=== PATIENT | female | born 1975 | race Caucasian/White ===

== ENCOUNTER 2021-05-27 01:58 | Emergency (ER) | payer MEDICAID, OTHER ==
[~2021-05-27] VITALS: Ht 167.6 cm; Wt 64.5 kg
[~2021-05-27 01:58] MED LIST: ONDA8TAB9 PO; PHEN-786 PO
[2021-05-27 02:41] LABS: BASOPHILS # (AUTO) 0.1 X10'3 (0-0.2); BASOPHILS % (AUTO) 1.3 % (0-1); EOSINOPHILS % (AUTO) 0 % (0-6); HEMATOCRIT 46.6 % (35.0-45.0); HEMOGLOBIN 15.8 g/dl (12.0-16.0); LYMPHOCYTES # (AUTO) 2.2 X10'3 (1.1-4.8); LYMPHOCYTES % (AUTO) 35.1 % (21-51); MEAN CORPUSCULAR HEMOGLOBIN 30.3 PG (27.0-31.0); MEAN CORPUSCULAR HGB CONC 33.9 g/dL (33.0-36.5); MEAN CORPUSCULAR VOLUME 89.6 FL (78-98); MEAN PLATELET VOLUME 10.1 FL (7.4-10.4); MONOCYTES # (AUTO) 0.5 X10'3 (0-0.9); MONOCYTES % (AUTO) 8.5 % (2-12); NEUTROPHILS # (AUTO) 3.5 X10'3 (1.8-7.7); NEUTROPHILS % (AUTO) 55.1 % (42-75); PLATELET COUNT 201 X10'3 (140-440); WHITE BLOOD COUNT 6.3 X10'3 (4.5-11.0)
[2021-05-27 02:43] LABS: CLARITY,URINE SLIGHTLY CLOUDY (Clear); COLOR,URINE YELLOW (Yellow); GLUCOSE, URINE NEGATIVE (Neg); KETONES,URINE NEGATIVE (Neg); LEUKOCYTE ESTERASE ,URINE MODERATE (Neg); NITRITES, URINE NEGATIVE (Neg); OCCULT BLOOD,URINE NEGATIVE (Neg); PH,URINE 6.5 (4.8-8.0); PROTEIN,URINE TRACE mg/dl (Neg); URINE HCG NEGATIVE (NEG); UROBILINOGEN,URINE 0.2 E.U/dL (0.2-1.0)
[2021-05-27 02:46] LABS: UA COLLECTION TYPE CLN CATCH MIDSTREAM
[2021-05-27 02:51] LABS: BACTERIA,URINE 1+ /HPF (Neg); MUCUS STRANDS FEW /LPF (Neg); RBC,URINE 0-2 /HPF (0-2); SQUAMOUS EPITHELIAL CELL,UR MODERATE /LPF (FEW); WBC,URINE 20-30 /HPF (0-4)
[2021-05-27 03:00] LABS: ALANINE AMINOTRANSFERASE 51 U/L (12-78); ALBUMIN 3.7 G/DL (3.4-5.0); ALBUMIN/GLOBULIN RATIO 0.9 (1.1-1.5); ALKALINE PHOSPHATASE 96 IU/L (46-116); ANION GAP 7 (8-16); ASPARTATE AMINO TRANSFERASE 35 U/L (10-37); BILIRUBIN,TOTAL 0.3 MG/DL (0.1-1.0); BLOOD UREA NITROGEN 21 MG/DL (7-18); BUN/CREATININE RATIO 18.6 (6.6-38.0); CALCIUM 9.2 MG/DL (8.5-10.1); CHLORIDE 100 MMOL/L (99-107); CREATININE 1.13 MG/DL (0.40-0.90); GLUCOSE 111 MG/DL (70-104); LIPASE 147 U/L (73-393); POTASSIUM 3.3 MMOL/L (3.5-5.1); SODIUM 138 MMOL/L (135-145); TOTAL CARBON DIOXIDE 31.5 MMOL/L (24-32); TOTAL PROTEIN 7.9 G/DL (6.4-8.2); eGFR 52 ML/MIN
[2021-05-27] MEDS ORDERED: ketorolac trometh. 30mg/ml inj. IV ONE (05:15)
[2021-05-27] MEDS ORDERED: CEPH-585 PO (05:23)
[2021-05-27 05:35] VITALS: BP 155/97
== END 2021-05-27 05:36 | disposition home or self-care (01) ==
LOC: ER 01:59
DX: N39.0 Urinary tract infection, site not specified (principal); R10.84 Generalized abdominal pain; R14.0 Abdominal distension (gaseous); I10 Essential (primary) hypertension; Z72.89 Other problems related to lifestyle; Z79.2 Long term (current) use of antibiotics; Z79.899 Other long term (current) drug therapy
CPT/HCPCS: 36415; 74176; 80053; 81001; 81025; 83690; 85025; 87088; 96374; 99285; J1885

== ENCOUNTER 2021-06-02 14:42 | Emergency (ER) | payer MEDICAID ==
[~2021-06-02] VITALS: Ht 167.6 cm; Wt 64.5 kg
[~2021-06-02 14:42] MED LIST changes: +CEPH-585 PO
[2021-06-02 15:11] VITALS: BP 161/94
[2021-06-02 15:47] LABS: CLARITY,URINE SLIGHTLY CLOUDY (Clear); GLUCOSE, URINE NEGATIVE (Neg); KETONES,URINE NEGATIVE (Neg); LEUKOCYTE ESTERASE ,URINE MODERATE (Neg); NITRITES, URINE NEGATIVE (Neg); OCCULT BLOOD,URINE NEGATIVE (Neg); PH,URINE 6.5 (4.8-8.0); PROTEIN,URINE NEGATIVE (Neg); UROBILINOGEN,URINE 0.2 E.U/dL (0.2-1.0)
[2021-06-02 15:48] LABS: URINE HCG NEGATIVE (NEG)
[2021-06-02 15:50] LABS: COLOR,URINE STRAW (Yellow); UA COLLECTION TYPE CLN CATCH MIDSTREAM
[2021-06-02 15:52] LABS: BASOPHILS # (AUTO) 0.1 X10'3 (0-0.2); BASOPHILS % (AUTO) 1.5 % (0-1); EOSINOPHILS % (AUTO) 0.1 % (0-6); HEMATOCRIT 44.8 % (35.0-45.0); HEMOGLOBIN 15.1 g/dl (12.0-16.0); LYMPHOCYTES # (AUTO) 1.6 X10'3 (1.1-4.8); LYMPHOCYTES % (AUTO) 32.8 % (21-51); MEAN CORPUSCULAR HEMOGLOBIN 30.4 PG (27.0-31.0); MEAN CORPUSCULAR HGB CONC 33.7 g/dL (33.0-36.5); MEAN CORPUSCULAR VOLUME 90.3 FL (78-98); MEAN PLATELET VOLUME 9.9 FL (7.4-10.4); MONOCYTES # (AUTO) 0.5 X10'3 (0-0.9); MONOCYTES % (AUTO) 10.6 % (2-12); NEUTROPHILS # (AUTO) 2.8 X10'3 (1.8-7.7); PLATELET COUNT 194 X10'3 (140-440); RED BLOOD COUNT 4.96 X10'6 (4.20-5.60); RED CELL DISTRIBUTION WIDTH 13.1 % (11.5-14.5)
[2021-06-02 15:55] LABS: SQUAMOUS EPITHELIAL CELL,UR MANY /LPF (FEW)
[2021-06-02 16:00] LABS: BACTERIA,URINE 1+ /HPF (Neg); RBC,URINE 0-2 /HPF (0-2); WBC CLUMPS,URINE MODERATE /HPF (NEGATIVE)
[2021-06-02 16:01] LABS: TRANSITIONAL EPI CELLS,URINE FEW /HPF
[2021-06-02 16:03] LABS: ALANINE AMINOTRANSFERASE 44 U/L (12-78); ALBUMIN 3.4 G/DL (3.4-5.0); ALBUMIN/GLOBULIN RATIO 0.9 (1.1-1.5); ALKALINE PHOSPHATASE 96 IU/L (46-116); ANION GAP 4 (8-16); ASPARTATE AMINO TRANSFERASE 31 U/L (10-37); BILIRUBIN,TOTAL 0.4 MG/DL (0.1-1.0); BLOOD UREA NITROGEN 16 MG/DL (7-18); CALCIUM 8.9 MG/DL (8.5-10.1); CHLORIDE 102 MMOL/L (99-107); CREATININE 0.89 MG/DL (0.40-0.90); GLUCOSE 101 MG/DL (70-104); LIPASE 138 U/L (73-393); POTASSIUM 3.8 MMOL/L (3.5-5.1); SODIUM 136 MMOL/L (135-145); TOTAL CARBON DIOXIDE 30.3 MMOL/L (24-32); TOTAL PROTEIN 7.2 G/DL (6.4-8.2); eGFR 69 ML/MIN
== END 2021-06-02 23:48 | disposition left against medical advice (07) ==
LOC: ER 14:43
DX: R10.9 Unspecified abdominal pain (principal); Z53.21 Procedure and treatment not carried out due to patient leaving prior to being seen by health care provider
CPT/HCPCS: 36415; 80053; 81001; 81025; 83690; 85025

== ENCOUNTER 2021-10-18 11:05 | Emergency (ER) | payer MEDICAID ==
[~2021-10-18] VITALS: Ht 167.6 cm; Wt 70.5 kg
[2021-10-18 11:09] VITALS: BP 160/113
[2021-10-18] MEDS ORDERED: acetaminophen 325mg tablet PO ONE (13:50)
[2021-10-18] MEDS ORDERED: SULF1TAB49 PO (14:03)
[2021-10-18] MEDS ORDERED: methylPREDNISolone sod succ 125mg/2ml vial IM ONE (14:05)
== END 2021-10-18 15:23 | disposition home or self-care (01) ==
LOC: ER 11:05
DX: J06.9 Acute upper respiratory infection, unspecified (principal); L03.011 Cellulitis of right finger; R51.9 Headache, unspecified; R20.0 Anesthesia of skin; R20.2 Paresthesia of skin; R13.10 Dysphagia, unspecified; H53.149 Visual discomfort, unspecified; I10 Essential (primary) hypertension; Z56.0 Unemployment, unspecified; Z79.2 Long term (current) use of antibiotics; Z79.899 Other long term (current) drug therapy
CPT/HCPCS: 96372; 99283; J2930

== ENCOUNTER 2024-12-22 23:29 | Emergency (ER) | payer MEDICAID, OTHER ==
[~2024-12-22] VITALS: Ht 167.6 cm; Wt 67.5 kg
[~2024-12-22 23:29] MED LIST changes: -CEPH-585 PO
[2024-12-22 23:30] VITALS: TEMP 96.8
--- NOTE | 2024-12-23 00:37 | Physician Documentation ---
History of Present Illness ~ Chief Complaint: Shortness of Breath Stated Complaint: THROAT PAIN Time Seen by MD: 00:37 [facility] Mode of Arrival: POV HPI 49-year-old female, history of anxiety, who presents with shortness of breath and difficulty swallowing. She tells me that over the past 1 month, she has had gradually worsening shortne ss of breath. She tells me that she has had significant phlegm, and frequently throughout the day feels like she is choking on her phlegm. Then over the past couple of days she reports throat pain and swelling. She states that it is difficult to swallow, reports it feels like things get stuck in her throat, and she feels like her neck is swollen. She denies any history of lung problems including no history of asthma. No fevers or other infectious symptoms. No chest pain. She does have a history of anxiety and is on Wellbutrin. She denies any substance use. Medication Reconciliation Allergies: Coded Allergies: No Known Allergies (Unverified , 12/22/24) Scheduled Hydroxyzine Hcl* (Atarax*), 1 TAB PO Q8H Phenazopyridine Hcl (Pyridium tablet), 2 TAB PO TID Scheduled PRN Ondansetron (Zofran Odt), 8 MG PO TID PRN PRN for nausea/vomiting Past Medical History Past Medical History: Hypertension, Depression Past Surgical History: no surgical history Alcohol Use: None Drug Use: none Lives with: Family Lives In: Home Occupation: employed, unemployed Review of Systems Constitutional: Denies: fever ENT: Reports: throat pain, throat swelling Respiratory: Reports: shortness of breath Physical Exam Vital Signs: Temperature: 96.8, Source: Temporal, Heart Rate: 99, Respiratory Rate: 22, BP: 133/112, Pulse Oximetry: 98, Weight: 67.500 Physical Exam General: This is an extremely anxious appearing young female who appears unable to sit still in bed HEENT: Atraumatic, oropharynx is moist, no posterior oropharyngeal swelling, erythema, or white exudate. She is swallowing secretions without difficulty. No lesions in the mouth. Heart: Mild tachycardic, appears regular Lungs: Clear breath sounds bilateral, no wheezes, consolidation or crackles, normal oxygen saturation on room air. The patient does have intermittent hyperventilation Abdomen: Soft, nondistended, nontender all quadrants Extremities: Warm and well-perfused, no edema Neuro: Alert and oriented, no focal deficits Psychiatric: The patient appears extremely anxious, unable to sit still, intermittently hyperventilating, intermittently tearful Progress Results/Orders Results/Orders Orders - CARSON WORTHINGTON MD Chest,Single View (12/23/24 00:10) Monitor (12/23/24 00:04) Saline Lock (12/23/24 00:04) Oxygen (12/23/24 00:04) Completed Orders - CARSON WORTHINGTON MD Chest,Single View (12/23/24 00:10) Cbc/Diff (12/23/24 00:04) BMP (12/23/24 00:04) PBNP (12/23/24 00:04) Hs Troponin I W Calculations (12/23/24 00:04) Lorazepam Inj (Ativan Inj) (12/23/24 00:45) Electrocardiogram (12/22/24 23:53) Medications Received in ER Medications (Trade) Dose Ordered Sig/Cathleen Route PRN Reason Start Time Stop Time Status Last Admin Dose Admin (Ativan inj) 1 mg ONCE ONCE IV 12/23/24 00:45 12/23/24 00:46 DC 12/23/24 00:54 1 MG Vital Signs 12/22/24 12/22/24 12/23/24 12/23/24 23:30 23:53 00:58 01:56 Temp 96.8 Pulse 99 89 86 Resp 22 22 18 13 B/P (MAP) 133/112 137/90 (106) 150/79 (102) Pulse Ox 98 99 95 12/23/24 12/23/24 12/23/24 02:55 03:18 04:39 Pulse 91 92 86 Resp 15 16 19 B/P (MAP) 151/81 (104) 163/94 (117) 156/109 (125) Pulse Ox 95 95 97 Laboratory Tests Test 12/23/24 00:21 White Blood Count 5.6 Red Blood Count 5.21 Hemoglobin 14.7 Hematocrit 43.3 Mean Corpuscular Volume 83.2 Mean Corpuscular Hemoglobin 28.2 Mean Corpuscular Hemoglobin Concent 33.9 Red Cell Distribution Width 17.4 H Platelet Count 232 Mean Platelet Volume 9.7 Neutrophils (%) (Auto) 56.6 Lymphocytes (%) (Auto) 32.4 Monocytes (%) (Auto) 9.7 Eosinophils (%) (Auto) 0 Basophils (%) (Auto) 1.3 H Neutrophils # (Auto) 3.1 Lymphocytes # (Auto) 1.8 Monocytes # (Auto) 0.5 Eosinophils # (Auto) 0.0 Basophils # (Auto) 0.1 CBC Comment Sodium Level 140 Potassium Level 3.3 L Chloride Level 105 Carbon Dioxide Level 27.0 Anion Gap 8 Blood Urea Nitrogen 23 H Creatinine 1.12 H Estimated GFR/1.73 m2 52 BUN/Creatinine Ratio 20.5 H Glucose Level 127 H Calcium Level 9.6 Troponin I High Sensitivity 10 Pro-B-Type Natriuretic Peptide 167 H Albumin 3.2 L Chemistry Comments Re-Evaluation Re-evaluation : Re-Evaluation Time: 05:11 Re-Evaluation: Improved Progress On re-evaluation, the patient is resting comfortably. She tells me she feels much improved. Her breathing and throat feel normal. I explained the results of her testing. She feels comfortable going home. EKG/XRAY/CT/US/VASC/MRI EKG : Additional Comment I personally reviewed the EKG, and this shows poor baseline due to patient movement. Appears to be sinus rhythm, rate 92, QTC 468, possible T-wave inversion or depression in the lateral leads, however this appears possibly artifact Chest X-Ray : Additional Comments I personally reviewed the chest x-ray, and it shows: No focal consolidation, pulmonary edema, or pneumothorax Medical Decision Making Differential Dx:Considerations: Include: anxiety, asthma, CHF, dysrhythmia, myocardial infarction, pneumonia, pneumothorax, respiratory distress, upper resp. infection Additional Infomation The patient presents with 1 month of intermittent sensation of shortness of breath and throat tightness. On exam she has a normal lung exam and normal oxygen saturations. No swelling to the throat or neck. Her workup is u nremarkable, no evidence of a dangerous heart or lung problem. She was given Ativan, after which she slept in her symptoms all seem to improve. I suspect that her symptoms are related to anxiety. There was no evidence of more dangerous process at this time. She will be discharged with hydroxyzine and home care instructions, with a plan to follow up with her outpatient clinic to discuss further treatment options. Return precautions given. Departure Time of Disposition: 05:04 Disposition: 01 HOME / SELF CARE / HOMELESS Impression: Primary Impression: Difficulty breathing Additional Impression: Anxiety Condition: Improved Discharge Instructions: Managing Anxiety, Adult Referrals: NO PRIMARY CARE PROVIDER (PCP) Prescriptions Hydroxyzine Hcl* (Atarax*) 25 Mg Tablet 1 TAB PO Q8H for anxiety for 30 Days, #90 TAB Prov: CARSON WORTHINGTON MD 12/23/24 Education Educated: Patient Educated regarding: diagnosis, treatment, need for follow up Signature Scribe Signature: jackson Attestation: CARSON Cain MD Dec 23, 2024 00:37
[2024-12-23 00:45] LABS: MEAN PLATELET VOLUME 9.7 FL (7.4-10.4); RED CELL DISTRIBUTION WIDTH 17.4 % (11.5-14.5)
--- NOTE | 2024-12-23 00:51 | RADIOLOGY REPORT ---
CHEST RADIOGRAPH Indication: CP Technique: Single frontal view of the chest was obtained COMPARISON: None FINDINGS: Lines and Tubes: None Lungs: Clear. Pleura: No effusion. No pneumothorax. Cardiomediastinal contours: Unremarkable IMPRESSION: No abnormality demonstrated.
[2024-12-23 01:06] LABS: CREATININE 1.12 MG/DL (0.40-0.90); PRO BRAIN NATRIURETIC PEPTIDE 167 PG/ML (0-125); TOTAL CARBON DIOXIDE 27.0 MMOL/L (24-32); eCRCL 58 ML/MIN; eGFR 52 ML/MIN
--- NOTE | 2024-12-23 02:23 | ELECTROCARDIOGRAPH REPORT ---
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
[2024-12-23] MEDS ORDERED: HYDR-3686 PO (05:05)
[2024-12-23 05:17] VITALS: BP 149/104; PULSE 79; RESP 18; O2SAT 98
== END 2024-12-23 05:19 | disposition home or self-care (01) ==
LOC: ER 23:29
DX: R06.02 Shortness of breath (principal); R07.0 Pain in throat; F32.A Depression, unspecified; F41.9 Anxiety disorder, unspecified; I10 Essential (primary) hypertension
CPT/HCPCS: 36415; 71045; 80048; 83880; 84484; 85025; 93005; 96374; 99285; J2060

== ENCOUNTER 2025-06-14 11:47 | Inpatient (IN) | payer OTHER ==
[~2025-06-14] VITALS: Ht 167.6 cm; Wt 85.0 kg
--- NOTE | 2025-06-14 12:09 | ELECTROCARDIOGRAPH REPORT ---
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 DAYTON Alonzo Measurements Intervals [place] Rate: 101 P: 44 NV: 146 QRS: 41 QRSD: 83 T: 247 QT: 339 QTc: 440 Interpretive Statements Sinus tachycardia Probable anterior infarct, age indeterminate Baseline wander in lead(s) II,V5 Electronically Signed On 06-15-2025 14:35:[address] DAYTON Alonzo Please click the below link to view image of tracing.
[2025-06-14 12:28] LABS: MEAN PLATELET VOLUME 9.7 FL (7.4-10.4); RED CELL DISTRIBUTION WIDTH 13.8 % (11.5-14.5)
--- NOTE | 2025-06-14 12:40 | RADIOLOGY REPORT ---
CHEST RADIOGRAPH INDICATION: CP TECHNIQUE: Single frontal view of the chest was obtained COMPARISON: DI CHEST,SINGLE VIEW on DOS: 12/23/24 FINDINGS: Lines and Tubes: None Lungs: Clear Pleura: No effusion. No pneumothorax. Cardiomediastinal contours: Unremarkable Bones: Unremarkable IMPRESSION: 1. No acute disease.
[2025-06-14 12:44] LABS: CREATININE 0.88 MG/DL (0.40-0.90); PRO BRAIN NATRIURETIC PEPTIDE 928 PG/ML (0-125); TOTAL CARBON DIOXIDE 29.3 MMOL/L (24-32); eCRCL 73 ML/MIN; eGFR 69 ML/MIN
--- NOTE | 2025-06-14 14:25 | Physician Documentation ---
History of Present Illness ~ Chief Complaint: Shortness of Breath Stated Complaint: SWOLLEN FOOT Time Seen by MD: 14:04 Primary Medical Doctor: [facility] Mode of Arrival: POV, Ambulatory HPI The patient is a 49-year-old female with a history of hypertension (takes lisinopril), stage I chronic renal failure and anxiety who presents with shortness of breath over the past two months. This shortness of breath is largely exertional. She is also complaining of a stabbing like pain in her left heel for the past week. 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 Medication Reconciliation Allergies: Coded Allergies: No Known Allergies (Unverified , 06/14/25) Scheduled Phenazopyridine Hcl (Pyridium tablet), 2 TAB PO TID Scheduled PRN Ondansetron (Zofran Odt), 8 MG PO TID PRN PRN for nausea/vomiting Past Medical History Past Medical History: Hypertension, Depression Past Surgical History: no surgical history Alcohol Use: None Drug Use: none Lives with: Family Lives In: Home Occupation: employed, unemployed Review of Systems ROS A 10 system review is negative except as noted in the HPI. Physical Exam Vital Signs: Temperature: 98.3, Source: Temporal, Heart Rate: 102, Respiratory Rate: 22, BP: 204/122, Pulse Oximetry: 99, Weight: 85.400 Oxygen Flow Rate: 0 Physical Exam Physical Exam Vitals and nursing note reviewed. Constitutional: General: Patient is awake, alert, oriented x 4 in no acute distress and well appearing. Speech is clear and lucid. Appearance: Normal appearance. Patient is not ill-appearing, toxic-appearing or diaphoretic. HENT: Head: Normocephalic and atraumatic. Mouth/Throat: Mouth: Mucous membranes are moist. Pharynx: Oropharynx is clear. Eyes: General: No scleral icterus. Extraocular Movements: Extraocular movements intact. Pupils: Pupils are equal, round, and reactive to light. Neck: Supple, no Kernig or Brudzinski sign. Cardiovascular: Rate and Rhythm: Normal rate and regular rhythm. Heart sounds: No murmur heard. Pulmonary: Effort: No respiratory distress. Breath sounds: No wheezing, rhonchi or rales. Abdominal: General: There is no distension. Palpations: There is no fluid wave, hepatomegaly or mass. Tenderness: There is no abdominal tenderness. There is no guarding. Musculoskeletal: General: The left foot appears normal. There are no breaks in the skin. The heel is not swollen. Skin: Coloration: Skin is not jaundiced. Findings: No erythema or rash. Neurological: Mental Status: Patient is alert. Progress Results/Orders Results/Orders Orders - MAC ROSAS MD Chest,Single View (06/14/25 12:05) Monitor (06/14/25 12:05) Saline Lock (06/14/25 12:05) Oxygen (06/14/25 12:05) Foot, Complete (3vw Min) (06/14/25 14:19) Electrocardiogram (06/14/25 ) Page Hospitalist (06/14/25 15:43) Completed Orders - MAC ROSAS MD Chest,Single View (06/14/25 12:05) Cbc/Diff (06/14/25 12:05) BMP (06/14/25 12:05) PBNP (06/14/25 12:05) Electrocardiogram (06/14/25 12:05) Hs Troponin I W Calculations (06/14/25 12:05) Hs Troponin I W Calculations (06/14/25 14:05) Foot, Complete (3vw Min) (06/14/25 14:19) PBNP (06/14/25 14:19) Bmp Er (06/14/25 14:19) MG (06/14/25 14:19) D-Dimer (06/14/25 14:19) Vital Signs 06/14/25 06/14/25 12:01 13:43 Temp 98.3 Pulse 102 Resp 20 22 B/P (MAP) 204/122 Pulse Ox 99 O2 Flow Rate 0 Laboratory Tests Test 06/14/25 12:12 06/14/25 14:05 White Blood Count 7.0 Red Blood Count 5.40 Hemoglobin 15.8 Hematocrit 47.3 H Mean Corpuscular Volume 87.5 Mean Corpuscular Hemoglobin 29.3 Mean Corpuscular Hemoglobin Concent 33.5 Red Cell Distribution Width 13.8 Platelet Count 252 Mean Platelet Volume 9.7 Neutrophils (%) (Auto) 70.7 Lymphocytes (%) (Auto) 22.5 Monocytes (%) (Auto) 5.9 Eosinophils (%) (Auto) 0 Basophils (%) (Auto) 0.9 Neutrophils # (Auto) 5.0 Lymphocytes # (Auto) 1.6 Monocytes # (Auto) 0.4 Eosinophils # (Auto) 0.0 Basophils # (Auto) 0.1 CBC Comment D-Dimer 0.37 D-Dimer Comment Sodium Level 140 141 Potassium Level 3.6 4.2 Chloride Level 102 105 Carbon Dioxide Level 29.3 30.2 Anion Gap 9 6 L Blood Urea Nitrogen 10 13 Creatinine 0.88 0.93 H Estimated GFR/1.73 m2 69 64 BUN/Creatinine Ratio 11.4 14.0 Glucose Level 134 H 98 Calcium Level 8.8 8.7 Troponin I High Sensitivity 41 38 Pro-B-Type Natriuretic Peptide 928 H 822 H Albumin 3.2 L 3.0 L Chemistry Comments Magnesium Level 2.1 Troponin I High Sens Percent Delta 7 Troponin I Hi Sens Absolute Change -3 Medical Decision Making Additional information obtaine: old records Findings Patient has stage I chronic kidney disease. but no evidence of congestive heart failure. Chest x-ray is reported normal. Patient's foot x-ray reveals no acute findings and I believe the pain she is having his plantar fasciitis. Heart Score: 4 Differential Dx:Considerations: Include: CHF, hypertension, accelerated; Unlikely: anxiety, asthma, bronchitis, cardiogenic shock, COPD, dysrhythmia, hypertension, essential, hypertension, malignant, hyperventilation, hyponatremia, myocardial infarction, panic attack, pneumonia, pneumonitis, pneumothorax, PSVT, pulmonary embolism, respiratory distress, respiratory failure, sinusitis, upper resp. infection, other Additional Infomation This patient as rising BNP he has. On 12/23/2024 the BNP was 167. Today it is 928. She has hypertension despite taking lisinopril. She has stage 1 kidney disease. It does not appear that she has had an echocardiogram or stress test and I believe these would be beneficial. I am going to get her admitted. Departure Disposition: ADMITTED INPATIENT Admitted to Inpatient Unit: to hospitalist Admission Level of Care: Med/Surg with Tele Impression: Primary Impression: CHF (congestive heart failure) Condition: Stable Referrals: NO PRIMARY CARE PROVIDER (PCP) Signature Scribe Signature: . Attestation: MAC BRADSHAW MD Jun 14, 2025 14:25
[2025-06-14 15:13] LABS: CREATININE 0.93 MG/DL (0.40-0.90); PRO BRAIN NATRIURETIC PEPTIDE 822 PG/ML (0-125); TOTAL CARBON DIOXIDE 30.2 MMOL/L (24-32); eCRCL 69 ML/MIN; eGFR 64 ML/MIN
--- NOTE | 2025-06-14 15:18 | RADIOLOGY REPORT ---
CLINICAL INDICATION: Heel pain TECHNIQUE: 4 radiographic views of the left foot were obtained. COMPARISON: None FINDINGS/IMPRESSION: There is no evidence of acute fracture or dislocation. Posterior and plantar calcaneal enthesophytes. The visualized joint space is well maintained. The alignment is anatomical. There is no radiopaque foreign body.
[2025-06-14] MEDS ORDERED: mag hydrox/Alum hydrox/simeth 30ml oral suspension PO PRN (17:00)
[2025-06-14] MEDS ORDERED: magnesium sulf-water 2g/50mL 50 ML IV PRN (17:00)
[2025-06-14] MEDS ORDERED: magnesium Cl slow-release 64mg tablet PO PRN (17:00)
[2025-06-14] MEDS ORDERED: magnesium sulf-water 4G/100mL 100 ML IV PRN (17:00)
[2025-06-14] MEDS ORDERED: potassium Cl 40MEQ/1/2NS 520ml 520 ML IV PRN (17:00)
[2025-06-14] MEDS ORDERED: potassium Cl 20 mEq SR tablet PO PRN (17:00)
[2025-06-14] MEDS ORDERED: normal saline 1000ml 1,000 ML IV SCH (17:00)
[2025-06-14] MEDS ORDERED: magnesium hydroxide 30ml (MOM) UD suspension PO PRN (17:00)
[2025-06-14] MEDS ORDERED: metoprolol tartrate 1mg/ml inj IV PRN (17:10)
[2025-06-14] MEDS ORDERED: aminophylline 250mg/10ml inj. IV PRN (17:10)
[2025-06-14] MEDS ORDERED: ipratropium/albuterol 3ml nebule NEB PRN (17:10)
--- NOTE | 2025-06-14 17:15 | HISTORY AND PHYSICAL-Residence ---
History & Physical Providers to CC Resident Creating Document: ROBY HARRIS RES ~ History of Present Illness Primary Medical Doctor: [facility] Reason for Admit\Complaint: Shortness of breath History of Present Illness The 49-year-old female with a past medical history of hypertension presented to the ER with a chief concern of shortness of breath and got worse in the last few months. She also developed cough about two weeks back which is gradually getting worse. He feels short of breath even walking around in the house. Denies any chest pain and has chest discomfort with cough. Denies any nausea, vomiting, abdominal pain, constipation or diarrhea, dysuria, dizziness or fall. She finds it difficult to walk around the house. Denies any significant orthopnea or PND. Denies smoking tobacco. Her boyfriend vapes nicotine. 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 Denies any other cardiac history. Also complains of left heel pain with the walking. No trauma or fall. Allergies: Coded Allergies: No Known Allergies (Unverified , 06/14/25) Home Medications Home Medications Active Pyridium tablet (Phenazopyridine HCl) 100 Mg Tablet 2 Tab PO TID Zofran Odt (Ondansetron) 8 Mg Tab.rapdis 8 Mg PO TID PRN PRN Past Medical History Past Medical History Hypertension, depression Past Surgical History Surgical History Comment Had three tumors resected from the uterus (unsure about the type of carcinoma) and no hysterectomy done Past Social History Social History Comment Denies smoking tobacco. Occasionally drinks alcohol - once in a week. Denied abusing any other recreational drugs Smoking: Non-Smoker Alcohol Use: None Drug Use: None Lives with: Family Lives In: Home Occupation: employed, unemployed ROS ROS Constitutional: No fever, chills, dizziness, weakness, weight gain or loss Eyes: No pain, erythema, discharge, blurring of vision ENT: No sore throat, epistaxis, tinnitus Cardiovascular: Chest discomfort present. No chest pain, chest pressure, palpitations, syncope, lower extremity edema, paroxysmal nocturnal dyspnea Respiratory: Shortness of breaths and cough present. hemoptysis Gastrointestinal: Normal appetite. No nausea, vomiting, diarrhea, constipation, hematemesis, abdominal pain, bloating, melena or fresh blood Genitourinary: No frequency, urgency, nocturia, hematuria or dysuria Musculoskeletal: Left heel pain present. No arthralgias Integumentary: No change in skin, hair, nails. No swelling, bruising, abrasions Neurologic: No headache, neck pain, numbness or tingling of the extremities, weakness Psychiatric: No delusions, depression, loss of interest in normal activity or change in sleep pattern, hallucinations, suicidal ideations Endocrine: No fatigue, weakness, polydipsia, polyuria, change in appetite, heat or cold intolerance, sweating, dry skin Hematological: No bleeding, petechiae, bruising Allergies: No asthma or urticaria Exam Vitals: Vital Signs Date Time Temp Pulse Resp B/P (MAP) Pulse Ox O2 Delivery O2 Flow Rate FiO2 06/14/25 13:43 22 06/14/25 12:01 98.3 102 99 0 General: Alert and oriented x4 HEENT: Normocephalic and atraumatic. Pupils equal round reactive to light and accommodation. Extraocular movements intact. Oral and nasal mucosa moist Neck: Trachea is in midline. No masses or JVD Chest: Bilateral normal breath sounds. Bilateral expiratory wheezing present. No crackles or rhonchi Cardiovascular: Regular rate and rhythm. S1-S2 normal. No rubs or murmurs Abdomen: Soft, nontender nondistended. Bowel sounds present Extremities: No cyanosis, clubbing or edema. Mild tenderness on left heel and no significant erythema or edema noted Central Nervous System: No gross sensory or motor deficits Skin: Warm and dry Diagnostic Data Last Recorded Lab Results: 06/14/25 1212 06/14/25 1405 Diagnostic Data: Laboratory Tests Test 06/14/25 12:12 D-Dimer 0.37 MG/L FEU (0-0.50) D-Dimer Comment Advance Care Planning Advanced Care plannin - 30 Minutes Additional Plan Possible acute exacerbation of COPD Bilateral expiratory wheezing present Not requiring any oxygen supplementation Chest x-ray shows hyperinflation Chest CT ordered to look for any possible emphysematous changes Ordered albuterol nebulization q.4h scheduled and ipratropium/albuterol q.4h p.r.n. Started azithromycin 500 mg IV daily Echocardiogram showed sinus rhythm, tachycardic 101, about [address]-depression in leads II, AVF, V6 and Q-waves in leads V1 and V2 Troponins negative D-dimer negative Lexiscan tomorrow in a.m.. NPO after midnight Echocardiogram ordered Left heel pain Left foot x-ray showed no evidence of acute fracture or dislocation. Posterior and plantar calcaneal enthesophytes present Continue Tylenol for pain Hypertension Held lisinopril as she is having cough Given Hydralazine 10mg IV once Started losartan 100mg once daily DVT prophylaxis: Lovenox 40mg subcutaneous daily Roby Harris MD Internal Medicine Resident, PGY 3 Date of Service: Jun 14, 2025 Billing Provider: JAMAR RAMIREZ MD, MANOJNA RES Jun 14, 2025 17:15
[2025-06-14 17:30] VITALS: PULSE 82; RESP 16; O2SAT 98
[2025-06-14 17:42] LABS: APTT 23 SECONDS (22-32)
[2025-06-14] MEDS: azithromycin/NS 500mg/250ml 250 ML IV SCH (17:42)
[2025-06-14 17:43] LABS: CREATININE 0.92 MG/DL (0.40-0.90); TOTAL CARBON DIOXIDE 29.5 MMOL/L (24-32); eCRCL 70 ML/MIN; eGFR 65 ML/MIN
[2025-06-14] MEDS: hydrALAZINE 20mg/ml inj. IV ONE (17:43)
[2025-06-14 17:45] LABS: INR 0.9 INR
[2025-06-14] MEDS ORDERED: NO HOME MEDS (17:54)
[2025-06-14 18:07] LABS: LEUKOCYTE ESTERASE ,URINE TRACE (Neg); NITRITES, URINE NEGATIVE (Neg); OCCULT BLOOD,URINE TRACE-INTACT (Neg)
[2025-06-14 18:08] LABS: URINE HCG NEGATIVE (NEG)
[2025-06-14 18:31] LABS: URINE AMPHETAMINE SCREEN NEGATIVE (Neg); URINE BARBITUATE SCREEN NEGATIVE (Neg); URINE BENZODIAZEPINES SCREEN NEGATIVE (Neg); URINE CANNABINOID SCREEN NEGATIVE (Neg); URINE COCAINE SCREEN POSITIVE (Neg); URINE METHADONE SCREEN NEGATIVE (Neg); URINE OPIATE SCREEN NEGATIVE (Neg); URINE PHENCYCLIDINE SCREEN NEGATIVE (Neg)
[2025-06-14 18:41] LABS: UA COLLECTION TYPE CLN CATCH MIDSTREAM
[2025-06-14 18:43] LABS: SQUAMOUS EPITHELIAL CELL,UR FEW /LPF (FEW)
[2025-06-14 18:50] VITALS: BP 173/98; PULSE 100; RESP 18; TEMP 97.4; O2SAT 98
[2025-06-14] MEDS ORDERED: LISI1TAB53 PO (19:30)
[2025-06-14 20:00] VITALS: RESP 18; O2SAT 96
[2025-06-14] MEDS: K and/or MAG REPLACEMENT MC SCH (20:00)
[2025-06-14] MEDS: albuterol 2.5 MG/3 ML nebule NEB SCH (20:14)
[2025-06-14 20:15] VITALS: PULSE 95; RESP 20; O2SAT 98
[2025-06-14 20:25] VITALS: PULSE 90; RESP 20
[2025-06-14] MEDS: ondansetron/PF 4mg/2ml inj IV PRN (20:46)
[2025-06-14] MEDS: enoxaparin 40mg/0.4ml syringe SQ SCH (20:49)
--- NOTE | 2025-06-14 20:49 | RADIOLOGY REPORT ---
EXAM: CT CT CHEST History: rule out copd Comparison Study: DI CHEST,SINGLE VIEW on DOS: 06/14/25, DI CHEST,SINGLE VIEW on DOS: 12/23/24 TECHNIQUE: Multidetector CT of the chest was performed. Imaging was performed without IV contrast. Axial, coronal, and sagittal multiplanar reformats were obtained from the axial data set by the technologist. Radiation Dose : CTDI vol 18.5 mGy, DLP 688.7 mGy*cm. FINDINGS: Evaluation is degraded by respiratory motion. Lungs: Minimal ground-glass opacity is seen within the right lower lobe. Scattered mild atelectasis/ scarring is seen within the left lower lobe. No definitive evidence of emphysema. Pleura: Unremarkable Heart/Great vessels: No cardiomegaly or pericardial effusion. Mild atherosclerotic calcifications about the aorta. Mediastinum: Unremarkable. Soft tissues/Bones: Unremarkable Upper abdomen: Unremarkable. IMPRESSION: 1. Nonspecific mild ground-glass opacities within the right lower lobe may reflect atelectasis or infectious/ inflammatory process in the appropriate clinical setting.
[2025-06-14 22:00] VITALS: BP 146/89; PULSE 94; RESP 15; TEMP 97.6; O2SAT 99
[2025-06-14] MEDS ORDERED: albuterol 2.5 MG/3 ML nebule NEB PRN (23:35)
[2025-06-15] VITALS (14 sets, daily range): BP systolic 144–172; BP diastolic 89–113; PULSE 79–94; RESP 16–20; TEMP 97.2–98.4; O2SAT 88–100
[2025-06-15] MEDS: potassium Cl 20 mEq SR tablet PO PRN (00:06)
[2025-06-15] MEDS: guaiFENesin/DM 10ml UD oral syrup PO PRN (00:07)
[2025-06-15 07:14] LABS: MEAN PLATELET VOLUME 9.8 FL (7.4-10.4); RED CELL DISTRIBUTION WIDTH 13.6 % (11.5-14.5)
[2025-06-15 07:25] LABS: APTT 25 SECONDS (22-32); INR 1.0 INR
[2025-06-15 07:43] LABS: CHOL/HDL RATIO 2.9 (0.00-4.99); CREATININE 0.88 MG/DL (0.40-0.90); LDL CHOLESTEROL 82 MG/DL (50-100); PHOSPHORUS 4.3 MG/DL (2.3-4.5); TOTAL CARBON DIOXIDE 28.4 MMOL/L (24-32); eCRCL 73 ML/MIN; eGFR 69 ML/MIN
[2025-06-15] MEDS: ketorolac trometh 15mg/ml vial 15 MG/ML ML IM ONE (08:40)
[2025-06-15] MEDS: CefTRIAXone/D5W-Rocephin 1gm 50 ML IV SCH (09:20)
[2025-06-15 11:34] LABS: INFLUENZA TYPE A ANTIGEN RAPID NEGATIVE (Negative); INFLUENZA TYPE B ANTIGEN RAPID NEGATIVE (Negative)
--- NOTE | 2025-06-15 11:34 | ELECTROCARDIOGRAPH REPORT ---
[facility] Test Date: 2025-06-15 Test Time: 11:14:42 Pat Name: NEERAJ APPLE Department: 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 DAYTON Alonzo Measurements Intervals [place] Rate: 81 P: 37 [place]: 151 QRS: -10 QRSD: 83 T: 224 QT: 393 QTc: 457 Interpretive Statements Sinus rhythm Probable anterior infarct, age indeterminate Lateral leads are also involved Electronically Signed On 06-15-2025 14:34:[address] DAYTON Alonzo Please click the below link to view image of tracing.
[2025-06-15] MEDS: regadenoson 0.4mg/5ml syringe IV PRN (12:35)
--- NOTE | 2025-06-15 15:51 | RADIOLOGY REPORT ---
NUCLEAR MEDICINE MYOCARDIAL PERFUSION REST/STRESS TEST REASON FOR EXAM: rule out reversible ischemic changes. Chest pain. COMPARISON: None RADIOPHARMACEUTICAL: 35.1 mCi Tc-99m sestamibi intravenously (stress) 9.3 mCi Tc-99m sestamibi intravenously (rest) AUTHORIZED USER: Garth Fung M.D. PROTOCOL: 0.4 mg Lexiscan was administered under the supervision of the identification and records commander. A dual-head gamma camera was utilized with energy collimation. Gated SPECT imaging was obtained. The heart was imaged in short axis, vertical long axis and horizontal long axis planes. DOSAGE TO IMAGE TIME: 90 minutes for the stress portion; 90 minutes for the rest portion. FINDINGS: There is normal distribution of radiotracer throughout the myocardium on both the post-stress and rest phases. No significant reversible ischemia or irreversible infarction is identified. On wall motion analysis, no wall motion abnormality is identified. Calculated ejection fraction is 50 %. Calculated left ventricular end diastolic volume is 100 mL and the end systolic volume is 50 mL. IMPRESSION: No sites of reversible ischemia or irreversible infarction is identified. Calculated ejection fraction is 50%.
[2025-06-15] MEDS ORDERED: NITR0.4T51 SL (16:02)
[2025-06-15] MEDS ORDERED: ATOR40TA71 PO (16:02)
[2025-06-15] MEDS ORDERED: METO-395 PO (16:02)
[2025-06-15] MEDS ORDERED: LEVO-65 PO (16:02)
--- NOTE | 2025-06-15 16:15 | DISCHARGE SUMMARY-Residence ---
Discharge Summary Providers to CC Resident Creating Document: COREY KAN, RES ~ Discharge Summary Admission Diagnosis: shortness of breath Hospital Course DATE OF ADMISSION: 06/14/2025 DATE OF DISCHARGE: 06/15/2025 Discharge Diagnosis\Comment: Community-acquired pneumonia Unstable angina (ruled out ACS) Hypertensive urgency Acute exacerbation of COPD Substance use disorder (cocaine) Operations\Procedures: Nuclear stress test Consultants: None Complications: None Condition on DC: Stable New Medications: Aspirin (Aspirin EC) 81 Mg Tablet.dr 1 TAB PO DAILY for 30 Days, #30 TAB Atorvastatin Calcium (Atorvastatin Calcium) 40 Mg Tablet 1 TAB PO DAILY for 30 Days, #30 TAB 0 Refills Levofloxacin (Levofloxacin) 500 Mg Tablet 1 TAB PO DAILY for 7 Days, #7 TAB Metoprolol Succinate (Metoprolol Succinate) 25 Mg Tab.sr.24h 25 MG PO DAILY for 30 Days, #30 TAB.SR 0 Refills Nitroglycerin SL* (Nitrostat SL*) 0.4 Mg Tablet 0.4 MG SL Q5MIN PRN for chest pain for 5 Days, #30 TAB Continued Medications: Home Med List (No Home Medications) Each Lisinopril/Hydrochlorothiazide (Lisinopril-Hctz 20-25 mg Tab) 20 Mg-25 Mg Tablet 1 TAB PO DAILY Ondansetron (Zofran Odt) 8 Mg Tab.rapdis 8 MG PO TID PRN PRN for nausea/vomiting, #12 TAB Phenazopyridine Hcl (Pyridium tablet) 100 Mg Tablet 2 TAB PO TID, #12 TAB Discharge Summary: History of Present Illness (HPI) The patient is a 49-year-old female with a past medical history of hypertension who presented to the ER with progressive shortness of breath over the past few months, worsening in recent weeks. She also developed a cough two weeks ago, which has gradually worsened. She reports dyspnea even with minimal exertion, such as walking around the house. She denies chest pain but notes mild chest di scomfort associated with coughing. No nausea, vomiting, abdominal pain, constipation, diarrhea, dysuria, dizziness, or falls. She denies orthopnea or paroxysmal nocturnal dyspnea. She does not smoke tobacco but reports her boyfriend vapes nicotine. 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 She also complains of left heel pain with walking, without trauma or fall. Hospital Course The patient was admitted for evaluation of shortness of breath and cough. Chest X-ray revealed hyperinflation, raising suspicion for possible acute exacerbation of COPD and community-acquired pneumonia (CAP). Chest CT revealed Nonspecific mild ground-glass opacities within the right lower lobe may reflect atelectasis or infectious/ inflammatory process in the appropriate clinical setting. She was started on scheduled albuterol nebulization every 4 hours and ipratropium/albuterol PRN, along with azithromycin 500 mg IV daily. EKG showed sinus tachycardia (HR 101 bpm), mild ST depression in leads II, AVF, V6, and Q waves in V1V2. Troponins and D-dimer were negative. Lexiscan stress test was performed and showed no reversible ischemia. Echocardiogram was ordered and showed preserved LV function. She received hydralazine 10 mg IV once and was started on losartan 100 mg PO daily. Left heel pain was evaluated with X-ray, which showed no fracture or dislocation but revealed posterior and plantar calcaneal enthesophytes. Pain was managed with acetaminophen. Urine toxicology was positive for cocaine; patient was counseled to abstain from cocaine use. She remained stable throughout hospitalization, did not require oxygen supplementation, and was discharged home in improved condition. Physical Examination General: Alert and oriented 4 HEENT: Normocephalic, atraumatic; pupils equal and reactive; oral mucosa moist Neck: Trachea midline; no JVD Chest: Bilateral breath sounds present; expiratory wheezing noted at admission, resolved at discharge; no crackles or rhonchi Cardiovascular: Regular rate and rhythm; normal S1, S2; no murmurs Abdomen: Soft, non-tender, non-distended; bowel sounds present Extremities: No cyanosis, clubbing, or edema; mild tenderness over left heel without erythema or swelling Neurological: No focal deficits Skin: Warm and dry Vital Signs Date Time Temp Pulse Resp B/P (MAP) Pulse Ox O2 Delivery O2 Flow Rate FiO2 06/15/25 15:57 91 20 98 Room Air* 0 21 06/15/25 12:51 154/97 06/15/25 11:00 98.4 Laboratory Tests Test 06/14/25 12:12 06/14/25 14:05 06/14/25 17:21 06/14/25 17:52 White Blood Count 7.0 X10'3 Red Blood Count 5.40 X10'6 Hemoglobin 15.8 g/dl Hematocrit 47.3 % Mean Corpuscular Volume 87.5 FL Mean Corpuscular Hemoglobin 29.3 PG Mean Corpuscular Hemoglobin Concent 33.5 g/dL Red Cell Distribution Width 13.8 % Platelet Count 252 X10'3 Mean Platelet Volume 9.7 FL Neutrophils (%) (Auto) 70.7 % Lymphocytes (%) (Auto) 22.5 % Monocytes (%) (Auto) 5.9 % Eosinophils (%) (Auto) 0 % Basophils (%) (Auto) 0.9 % Neutrophils # (Auto) 5.0 X10'3 Lymphocytes # (Auto) 1.6 X10'3 Monocytes # (Auto) 0.4 X10'3 Eosinophils # (Auto) 0.0 X10'3 Basophils # (Auto) 0.1 X10'3 CBC Comment D-Dimer 0.37 MG/L FEU D-Dimer Comment Sodium Level 140 MMOL/L 141 MMOL/L 139 MMOL/L Potassium Level 3.6 MMOL/L 4.2 MMOL/L 3.3 MMOL/L Chloride Level 102 MMOL/L 105 MMOL/L 105 MMOL/L Carbon Dioxide Level 29.3 MMOL/L 30.2 MMOL/L 29.5 MMOL/L Anion Gap 9 6 5 Blood Urea Nitrogen 10 MG/DL 13 MG/DL 14 MG/DL Creatinine 0.88 MG/DL 0.93 MG/DL 0.92 MG/DL Estimated GFR/1.73 m2 69 ML/MIN 64 ML/MIN 65 ML/MIN BUN/Creatinine Ratio 11.4 14.0 15.2 Glucose Level 134 MG/DL 98 MG/DL 108 MG/DL Calcium Level 8.8 MG/DL 8.7 MG/DL 8.7 MG/DL Troponin I High Sensitivity 41 ng/L 38 ng/L Pro-B-Type Natriuretic Peptide 928 PG/ML 822 PG/ML Albumin 3.2 G/DL 3.0 G/DL 2.8 G/DL Chemistry Comments Magnesium Level 2.1 MG/DL Troponin I High Sens Percent Delta 7 % Troponin I Hi Sens Absolute Change -3 ng/L Procalcitonin < 0.05 NG/ML Prothrombin Time 9.5 SECONDS INR International Normalized Ratio 0.9 INR Activated Partial Thromboplast Time 23 SECONDS Coagulation Comments Hemoglobin A1c 6.1 % Total Bilirubin 0.1 MG/DL Aspartate Amino Transf (AST/SGOT) 16 U/L Alanine Aminotransferase (ALT/SGPT) 15 U/L Alkaline Phosphatase 112 IU/L Total Protein 6.8 G/DL Globulin 4.0 G/DL Albumin/Globulin Ratio 0.7 Urine Specimen Description Cln catch midstream Urine Color Yellow Urine Clarity Clear Urine pH 6.0 Urine Specific [place] 1.020 Urine Protein Trace mg/dl Urine Glucose (UA) Negative mg/dl Urine Ketones Negative mg/dl Urine Occult Blood Trace-intact Urine Nitrite Negative Urine Bilirubin Negative Urine Urobilinogen 0.2 E.U/dL Urine Leukocyte Esterase Trace Urine RBC 3-10 /HPF Urine WBC 0-4 /HPF Urine Squamous Epithelial Cells Few /LPF Urine Bacteria Few /HPF Urine Culture Indicated Indicated Volume Urine Centrifuged 10 ml Urine HCG, Qualitative Negative Urine Comment Urine Opiates Screen Negative Urine Methadone Screen Negative Urine Fentanyl Screen Negative Urine Barbiturates Screen Negative Urine Phencyclidine Screen Negative Urine Amphetamines Screen Negative Urine Benzodiazepines Screen Negative Urine Cocaine Screen Positive Urine Cannabinoids Screen Negative Drug Screen Comment Test 06/15/25 06:42 06/15/25 10:53 White Blood Count 7.0 X10'3 Red Blood Count 5.09 X10'6 Hemoglobin 14.8 g/dl Hematocrit 44.4 % Mean Corpuscular Volume 87.3 FL Mean Corpuscular Hemoglobin 29.1 PG Mean Corpuscular Hemoglobin Concent 33.3 g/dL Red Cell Distribution Width 13.6 % Platelet Count 214 X10'3 Mean Platelet Volume 9.8 FL Neutrophils (%) (Auto) 69.2 % Lymphocytes (%) (Auto) 22.0 % Monocytes (%) (Auto) 8.0 % Eosinophils (%) (Auto) 0 % Basophils (%) (Auto) 0.8 % Neutrophils # (Auto) 4.8 X10'3 Lymphocytes # (Auto) 1.5 X10'3 Monocytes # (Auto) 0.6 X10'3 Eosinophils # (Auto) 0.0 X10'3 Basophils # (Auto) 0.1 X10'3 CBC Comment Prothrombin Time 9.8 SECONDS INR International Normalized Ratio 1.0 INR Activated Partial Thromboplast Time 25 SECONDS Coagulation Comments Sodium Level 138 MMOL/L Potassium Level 3.5 MMOL/L Chloride Level 103 MMOL/L Carbon Dioxide Level 28.4 MMOL/L Anion Gap 7 Blood Urea Nitrogen 15 MG/DL Creatinine 0.88 MG/DL Estimated GFR/1.73 m2 69 ML/MIN BUN/Creatinine Ratio 17.0 Glucose Level 106 MG/DL Calcium Level 8.8 MG/DL Phosphorus Level 4.3 MG/DL Magnesium Level 1.9 MG/DL Total Bilirubin 0.3 MG/DL Aspartate Amino Transf (AST/SGOT) 13 U/L Alanine Aminotransferase (ALT/SGPT) 16 U/L Alkaline Phosphatase 110 IU/L Total Protein 6.8 G/DL Albumin 2.8 G/DL Globulin 4.0 G/DL Albumin/Globulin Ratio 0.7 Triglycerides Level 153 MG/DL Cholesterol Level 167 MG/DL LDL Cholesterol 82 MG/DL HDL Cholesterol 58 MG/DL Cholesterol/HDL Ratio 2.9 Chemistry Comments Influenza Type A Antigen Negative Influenza Type B Antigen Negative Pertinent findings EKG: Sinus tachycardia, mild ST changes Troponin/D-dimer: Negative U-tox: Positive for cocaine Imaging Chest X-ray: Hyperinflation of lungs Chest CT: Ground-glass opacities in bilateral lungs suggestive of infective/inflammatory process Lexiscan: Negative for reversible ischemia Left foot X-ray: No fracture; calcaneal enthesophytes Discharge Recommendations Complete antibiotic course (Levofloxacin 7 days). Continue aspirin, atorvastatin, metoprolol, losartan, and nitroglycerin PRN. Avoid cocaine use; strongly counseled on risks. Follow up with cyber security manager and PCP within 1 week. Repeat CBC and CMP in 5 days with PCP. Return to ER for worsening chest pain, shortness of breath, or new symptoms. *Problems/Diagnosis: (1) Hypertensive urgency (2) Community acquired pneumonia (3) Unstable angina (4) Difficulty breathing Status: Acute Total Time Spent on D/C: > 30 Minutes Date of Service: Jun 15, 2025 Billing Provider: JAMAR RAMIREZ MD Common Visit Codes: 31831-VCD/OBS DISCH DAY >30min COREY KAN, RES Jun 15, 2025 16:15 JAMAR RAMIREZ MD Jun 16, 2025 17:40
[2025-06-15] MEDS ORDERED: ASPI-1265 PO (16:17)
--- NOTE | 2025-06-15 17:40 | CARDIOLOGY REPORT ---
APPROVED REPORT EXAM: Comprehensive 2D, Doppler, and color-flow Echocardiogram. Patient Location: 3[address] Heart Rate: 80's bpm Rhythm: SINUS Indications SHORTNESS OF BREATH ELEVATED PBNP 822 HYPERTENSION Medical Review Coordinator: NONE Previous echo: NONE 2D Dimensions RVDd 2.7 cm LA Diam 1.8 cm IVSd 1.2 (0.7-1.1cm) LVDd 4.8 cm PWd 1.2 (0.7-1.1cm) IVSs 1.3 (0.8-1.2cm) LVDs 3.5 (2.5-4.0cm) PWs 1.3 (0.8-1.2cm) LVOT Diameter 2.01 (1.8-2.4cm) LVEF(%) 52.0 (>50%) FS (%) 26.7 % SV 56.8 ml CO 4.8 L/min M-Mode Dimensions Aortic Root 2.95 (2.2-3.7cm) Aortic Cusp Exc 1.65 (1.5-2.0cm) Aortic Valve AoV Peak Alexandre. 179.9 cm/s AoV VTI 29.5 cm AO Peak GR. 12.9 mmHg AO Mean GR. 7 mmHg LVOT VTI 25.12 cm LVOT Peak Alexandre. 149.0 cm/s MARYA(VTI)/BSA 2.69 cm2/m2 MARYA (VTI) 2.69 cm2 AV DI 0.85 % Mitral Valve MV E Velocity 64.9 cm/s MV Peak Gr. 5 mmHg MV DECEL TIME 124 ms MV A Velocity 107.4 cm/s MV PHT 56 ms E/A Ratio 0.6 MVA (PHT) 3.93 cm2 MV VMax 110.1 cm/s Pulmonary Vein S1 Velocity 58.1 cm/s D2 Velocity 31.4 cm/s PVa Velocity 31.4 cm/s PVa Duration 128 msec LEFT VENTRICLE Normal LV size and function. Mild concentric hypertrophy. LVEF is 60%. RIGHT VENTRICLE RV is normal size and function. ATRIA Left atrium is mildly dilated. AORTIC VALVE Trileaflet AV appears normal without stenosis. No insufficiency by color and spectral flow Doppler. MITRAL VALVE Mild MV annular calcification without stenosis. Trace regurgitation by color and spectral flow Doppler. TRICUSPID VALVE TV appears structurally normal with trace regurgitation by color and spectral flow Doppler. PULMONIC VALVE Normal PV without stenosis, physiologic insufficiency by color and spectral flow Doppler. GREAT VESSELS The aortic root is normal in size. PERICARDIUM Normal pericardium. No effusion. Other Information Study Quality: Adequate Conclusion Normal LV size and function. Mild concentric hypertrophy. LVEF is 60%. RV is normal size and function. Left atrium is mildly dilated. Trileaflet AV appears normal without stenosis. No insufficiency by color and spectral flow Doppler. Mild MV annular calcification without stenosis. Trace regurgitation by color and spectral flow Doppler. TV appears structurally normal with trace regurgitation by color and spectral flow Doppler. Normal pericardium. No effusion.
== END 2025-06-15 16:40 | disposition home or self-care (01) | DRG 304 ==
LOC: ER 11:47 → ED HOLD 16:25 → PCU 3S 18:50
PROVIDERS: ADMIT Internal Medicine; ATTEND Internal Medicine
PROC: 4A02XM4 Measurement of Cardiac Total Activity, External Approach (ICD-10-PCS; principal; 2025-06-15)
PROC: 3E033HZ Introduction of Radioactive Substance into Peripheral Vein, Percutaneous Approach (ICD-10-PCS; 2025-06-15)
DX: I16.0 Hypertensive urgency (principal); J18.9 Pneumonia, unspecified organism; I50.9 Heart failure, unspecified; J44.0 Chronic obstructive pulmonary disease with (acute) lower respiratory infection; F32.A Depression, unspecified; I13.0 Hypertensive heart and chronic kidney disease with heart failure and stage 1 through stage 4 chronic kidney disease, or unspecified chronic kidney disease; J44.1 Chronic obstructive pulmonary disease with (acute) exacerbation; N18.1 Chronic kidney disease, stage 1; F14.90 Cocaine use, unspecified, uncomplicated
CPT/HCPCS: 36415; 71045; 71250; 73630; 78452; 80048; 80053; 80061; 80305; 81001; 81025; 83036; 83735; 83880; 84100; 84145; 84484; 85025; 85379; 85610; 85730; 87081; 87088; 87804; 93005; 93017; 93306; 94640; 94760; 96374; 96375; 99285; A6258; A9500; G0378; J0360; J0456; J1650; J1885; J1938; J2405; J2785; J7040; J7050